=== PATIENT | male | born 1990 | race Caucasian/White ===

== ENCOUNTER 2020-03-11 16:58 | Inpatient (IN) | payer SELFPAY ==
[2020-03-11 17:06] VITALS: BP 126/87; PULSE 97; RESP 18; TEMP 36.4; O2SAT 98; BMI 23.8
--- NOTE | 2020-03-11 17:13 | PC.NURSE ---
addressed sitter situation with charge, she states has no one available after calling [facility]. pt has already expressed wish to leave if having to dress fully out of his clothes. pt is flight risk and charge nurse is aware
--- NOTE | 2020-03-11 17:25 | W.ED.PSYCH ---
HPI - Psych General: Chief Complaint: Psychiatric Symptoms Stated Complaint: Suicidal thoughts Time Seen by Provider: 03/11/20 17:14 History of Present Illness: HPI Narrative: Patient is a 29-year-old male comes to the ED with SI. Patient says for the last couple days he has had increased thoughts of suicide. He denies any plan or attempt but says he thinks about overdosing. Admits to methamphetamine abuse and most recent use was last night. He states he has not been sleeping as well and some of stressful life gets to him, which causes increased thoughts of suicide. Patient also says he like to get clean from drugs as well. Denies any auditory or visual hallucinations or homicidal ideation. Patient does say he has some heartburn while here in the ED and says he frequently gets this. Associated symptoms: Reports suicidal ideation; Deny auditory hallucinations, visual hallucinations or homicidal ideation Review of Systems Const: Denies: fever(s), chills or fatigue Eyes: Denies: change in vision or eye discomfort ENMT: Denies: throat pain, odynophagia, nasal discharge or nasal congestion Card: Denies: chest pain, palpitations, edema, swelling of feet/ankles, dyspnea on exertion or orthopnea Resp: Denies: dyspnea, productive cough or non-productive cough GI: Denies: abdominal pain, nausea, vomiting, diarrhea, constipation or hematochezia : Denies: flank pain, difficulty urinating, dysuria or hematuria Musc: Denies: neck pain, back pain or extremity swelling Skin/Breast: Denies: rash or new lesions Neuro: Denies: headache(s), numbness in extremities or weakness in extremities Psych: Reports: sleeping less and suicidal ideation; Denies: visual hallucinations, auditory hallucinations or homicidal ideation Physical Exam Const: COMMON NORMALS: no acute distress, patient oriented x3 and alert GENERAL APPEARANCE: cooperative and comfortable HENMT: COMMON NORMALS: normocephalic HEAD & SCALP: normocephalic MOUTH: Normal oral and palatal mucosa present THROAT: posterior oropharynx normal and uvula midline Eye: COMMON NORMALS: Equal, round and reactive pupils present PUPIL: Yes Equal, round and reactive pupils present Neck/C-Spine: COMMON NORMALS: supple GENERAL: Yes normal visual inspection Resp: COMMON NORMALS: normal respiratory effort, No retractions, No use of accessory muscles and clear to auscultation bilaterally AUSCULTATION: clear to auscultation bilaterally Cardio: COMMON NORMALS: regular rate, regular rhythm, S1 normal heart sound present, S2 normal heart sound present, No gallops present (Cardio), No clicks present (Cardio), No murmurs present (Cardio) and Peripheral pulses 2+ throughout RATE: regular rate RHYTHM: regular rhythm HEART SOUNDS: S1 normal heart sound present and S2 normal heart sound present PERIPHERAL PULSES: Peripheral pulses 2+ throughout GI: COMMON NORMALS: Normal to inspection, nondistended, normoactive bowel sounds present, Soft to palpation, non-tender and no masses PALPATION: Yes Soft to palpation : COMMON NORMALS: Yes no CVA tenderness BLADDER/KIDNEY EXAM: Yes no CVA tenderness Back/Pelvis: COMMON NORMALS: no CVA tenderness Extremity: COMMON NORMALS: normal to inspection Neuro: COMMON NORMALS: patient oriented x3 and moves all extremities SENSORIUM/ORIENTATION: Yes alert Psych: COMMON NORMALS: Normal thought process present and speech normal APPEARANCE: Yes grossly normal ATTITUDE: Yes calm and Yes engaged ACTIVITY/MOTOR BEHAVIOR: Yes appropriate eye contact and Yes fidgeting SPEECH: Yes normal speech THOUGHT PROCESS: Normal thought process present THOUGHT CONTENT: Yes Suicidality present, No Homicidality present and No Hallucination(s) present ATTENTION/CONCENTRATION: Yes attention grossly intact and Yes concentration grossly intact MEMORY/COGNITION: Yes memory grossly intact and Yes cognition grossly intact INSIGHT: Fair insight present (Psych) JUDGEMENT: Fair judgement present (Psych) Skin: GENERAL SKIN EXAM: dry skin MDM - Psych MDM Narrative: Medical decision making narrative: Patient is a 29-year-old male comes to the ED with SI. He also admits to methamphetamine use in the last time he used was last night. Patient says he wants to get help and would like to be admitted to NPU. I contacted Dr. Griffin and told him about patient case and he accepted admission of patient into the NPU. Dr. Naik placed the admitting orders. Lab Data: Attestation: I reviewed the patient's lab results. Labs: Lab Results 03/11/20 03/11/20 03/11/20 Range/Units 17:40 17:40 17:53 WBC 5.3 (4.0-10.0) 10^3/ uL RBC 4.80 (4.1-5.3) 10^6/u L Hgb 14.3 (11.7-16.6) g/dL Hct 42.9 (42.0-52.0) % MCV 89.4 (80-94) fL MCH 29.8 (28.0-34.0) pg MCHC 33.3 (30.0-36.0) g/dL RDW 12.7 (12.1-15.1) % Plt Count 353 (130-400) 10^3/c mm MPV 9.0 (7.4-10.4) fL Neut % (Auto) 41.0 % Lymph % (Auto) 34.0 % [place] % (Auto) 21.0 % Eos % (Auto) 2.8 % Baso % (Auto) 0.8 % Neut # (Auto) 2.17 (1.8-7.7) 10^3/u L Lymph # (Auto) 1.8 (0.8-4.8) 10^3/u L [place] # (Auto) 1.1 H (0.2-0.9) 10^3/u L Eos # (Auto) 0.2 (0.0-0.8) 10^3/u L Baso # (Auto) 0.0 (0.0-0.1) 10^3/u L Nucleated RBC % (a uto) 0 % Nucleated RBCs # 0.0 /100WBC Sodium (136-145) mmol/L Potassium (3.5-5.1) mmol/L Chloride (98-107) mmol/L Carbon Dioxide (22-29) mmol/L Anion Gap (5-19) BUN (6-20) mg/dL Creatinine (0.7-1.2) mg/dL GFR Calculation (90-130) mL/min Glucose (65-115) mg/dL Calculated Osmolal ity (285-295) mOsm/k g Calcium (8.5-10.5) mg/dL Total Bilirubin (0.15-1.2) mg/dL AST (0-40) U/L ALT (0-41) U/L Alkaline Phosphata se (40-130) IU/L Total Protein (6.6-8.7) g/dL Albumin (3.5-5.2) g/dL Globulin (1.3-4.6) g/dL Urine Color Yellow (Yellow) Urine Appearance Clear (CLEAR) Urine pH 6.0 (5-7) Ur Specific Gravit y 1.015 (1.005-1.030) Urine Protein Neg (Negative) Urine Glucose (UA) Norm (Normal) Urine Ketones Negative (Negative) Urine Blood Neg (Negative) Urine Nitrate Negative (Negative) Urine Bilirubin Neg (Negative) Urine Urobilinogen Norm (Negative) mg/dL Ur Leukocyte Arlin ase Negative (Negative) Urine RBC None (0-2) /hpf Urine WBC None (0-5) /hpf Ur Squamous Epith Cells 0-4 H (0-5) /hpf Amorphous Sediment Not Reportable Urine Bacteria Trace (NONE) /hpf Urine Sperm 1+ /hpf Salicylates (3-10) mg/dL Urine Opiates Scre en Negative (Negative) ng/mL Acetaminophen (10-30) ug/mL Ur Barbiturates Sc reen Negative (Negative) ng/mL Ur Phencyclidine S crn Negative (Negative) ng/mL Ur Amphetamines Sc reen Positive H (Negative) ng/mL U Benzodiazepines Scrn Negative (Negative) ng/mL Urine Cocaine Scre en Negative (Negative) ng/mL U Marijuana (THC) Screen Positive H (Negative) ng/mL Ethyl Alcohol (0-10) mg/dL 03/11/20 Range/Units 17:53 WBC (4.0-10.0) 10^3/ uL RBC (4.1-5.3) 10^6/u L Hgb (11.7-16.6) g/dL Hct (42.0-52.0) % MCV (80-94) fL MCH (28.0-34.0) pg MCHC (30.0-36.0) g/dL RDW (12.1-15.1) % Plt Count (130-400) 10^3/c mm MPV (7.4-10.4) fL Neut % (Auto) % Lymph % (Auto) % [place] % (Auto) % Eos % (Auto) % Baso % (Auto) % Neut # (Auto) (1.8-7.7) 10^3/u L Lymph # (Auto) (0.8-4.8) 10^3/u L [place] # (Auto) (0.2-0.9) 10^3/u L Eos # (Auto) (0.0-0.8) 10^3/u L Baso # (Auto) (0.0-0.1) 10^3/u L Nucleated RBC % (a uto) % Nucleated RBCs # /100WBC Sodium 139 (136-145) mmol/L Potassium 4.0 (3.5-5.1) mmol/L Chloride 100 (98-107) mmol/L Carbon Dioxide 33 H (22-29) mmol/L Anion Gap 10.0 (5-19) BUN 22 H (6-20) mg/dL Creatinine 0.9 (0.7-1.2) mg/dL GFR Calculation 101.2 (90-130) mL/min Glucose 87 (65-115) mg/dL Calculated Osmolal ity 291 (285-295) mOsm/k g Calcium 8.9 (8.5-10.5) mg/dL Total Bilirubin 0.4 (0.15-1.2) mg/dL AST 24 (0-40) U/L ALT 54 H (0-41) U/L Alkaline Phosphata se 120 (40-130) IU/L Total Protein 6.9 (6.6-8.7) g/dL Albumin 3.7 (3.5-5.2) g/dL Globulin 3.2 (1.3-4.6) g/dL Urine Color (Yellow) Urine Appearance (CLEAR) Urine pH (5-7) Ur Specific Gravit y (1.005-1.030) Urine Protein (Negative) Urine Glucose (UA) (Normal) Urine Ketones (Negative) Urine Blood (Negative) Urine Nitrate (Negative) Urine Bilirubin (Negative) Urine Urobilinogen (Negative) mg/dL Ur Leukocyte Arlin ase (Negative) Urine RBC (0-2) /hpf Urine WBC (0-5) /hpf Ur Squamous Epith Cells (0-5) /hpf Amorphous Sediment Urine Bacteria (NONE) /hpf Urine Sperm /hpf Salicylates < 0.3 L (3-10) mg/dL Urine Opiates Scre en (Negative) ng/mL Acetaminophen < 5.0 L (10-30) ug/mL Ur Barbiturates Sc reen (Negative) ng/mL Ur Phencyclidine S crn (Negative) ng/mL Ur Amphetamines Sc reen (Negative) ng/mL U Benzodiazepines Scrn (Negative) ng/mL Urine Cocaine Scre en (Negative) ng/mL U Marijuana (THC) Screen (Negative) ng/mL Ethyl Alcohol < 10 (0-10) mg/dL EKG Data^: EKG 1: Attestation: I personally reviewed and interpreted this EKG as follows: EKG interpretation date: 03/11/20 Interpretation: Normal sinus rhythm, 76 bpm, no ST segment elevation or depression seen. Discharge Plan Discharge Patient Disposition: Admitted As Inpatient Admit Provider: Santi Griffin Clinical Impression: Suicidal ideation Condition: Stable Coding Level of Care Code ED Business Integration Manager for Chg Fwd Exam Comprehensive
[2020-03-11 17:30] VITALS: BP 135/82; PULSE 93; RESP 16; O2SAT 100
[2020-03-11 17:58] LABS: Basophils % 0.8 %; Eosinophils # 0.2 10^3/uL (0.0-0.8); Eosinophils % 2.8 %; Hematocrit 42.9 % (42.0-52.0); Hemoglobin 14.3 g/dL (11.7-16.6); Lymphocytes # 1.8 10^3/uL (0.8-4.8); Mean Corpuscular HGB Conc 33.3 g/dL (30.0-36.0); Mean Corpuscular Hemoglobin 29.8 pg (28.0-34.0); Mean Corpuscular Volume 89.4 fL (80-94); Monocytes # 1.1 10^3/uL (0.2-0.9); Neutrophils # 2.17 10^3/uL (1.8-7.7); Nucleated Red Blood Cells % 0 %; Platelet Count 353 10^3/cmm (130-400); Red Cell Distribution Width 12.7 % (12.1-15.1); White Blood Count 5.3 10^3/uL (4.0-10.0)
--- NOTE | 2020-03-11 18:01 | ECG_ITS ---
[facility] Test Date: 2020-03-11 Pat Name: John Love Department: Room: Gender: Male Finance Insurance Manager: : 1990 Requested By: Syed Carlton Order Number: [id number] Connors MD: Roya Hess M.D. Measurements Intervals [place] Rate: 76 P: 51 DE: 150 QRS: 79 QRSD: 104 T: 61 QT: 359 QTc: 404 Interpretive Statements SINUS RHYTHM Compared to ECG 03/05/2014 19:37:24 No significant changes Electronically Signed On 03-11-2020 23:54:35 ENVIRONMENTAL ECONOMIST by Roya Hess M.D. [id number]
[2020-03-11 18:14] LABS: Alanine Aminotransferase 54 U/L (0-41); Albumin Level 3.7 g/dL (3.5-5.2); Alkaline Phosphatase 120 IU/L (40-130); Aspartate Amino Transferase 24 U/L (0-40); Blood Urea Nitrogen 22 mg/dL (6-20); Calcium 8.9 mg/dL (8.5-10.5); Carbon Dioxide 33 mmol/L (22-29); Chloride 100 mmol/L (98-107); Globulin 3.2 g/dL (1.3-4.6); Glomerular Filtration Rate 101.2 mL/min (90-130); Glucose 87 mg/dL (65-115); Osmolality Calculated 291 mOsm/kg (285-295); Sodium 139 mmol/L (136-145); Total Bilirubin 0.4 mg/dL (0.15-1.2); Total Protein 6.9 g/dL (6.6-8.7)
[2020-03-11 18:15] LABS: Acetaminophen < 5.0 ug/mL (10-30); Alcohol Level < 10 mg/dL (0-10); Salicylate < 0.3 mg/dL (3-10)
[2020-03-11] MEDS: lidocaine 2% viscous 15 ML, aluminum-mag hydrox-simethicon 30 ML, sucralfate oral liq 1 GM PO (18:17)
[2020-03-11 18:19] LABS: Add Urine Culture? No; Bacteria Urine TRACE /hpf; Bilirubin Urine Neg (Negative); Blood Urine Neg (Negative); Glucose Urine UA Norm (Normal); Ketones Urine Negative (Negative); Leukocyte Esterase Urine Negative (Negative); Nitrate Urine Negative (Negative); Protein Urine Neg (Negative); Specific Gravity, Urine 1.015 (1.005-1.030); Sperm Urine 1+ /hpf; Squamous Epithelial Cell Urine 0-4 /hpf (0-5); Urine Appearance Clear (CLEAR); Urine Color Yellow (Yellow); Urobilinogen Urine Norm (Negative)
[2020-03-11 18:20] LABS: Amphetamines Screen Urine Positive (Negative); Barbiturates Screen Urine Negative (Negative); Benzodiazepines Screen Urine Negative (Negative); Cocaine Screen Urine Negative (Negative); Opiate Screen Urine Negative (Negative); PCP Screen Urine Negative (Negative); THC Screen Urine Positive (Negative)
--- NOTE | 2020-03-11 18:37 | PC.NURSE ---
Patient belongings collected and placed in clear plastic bag and placed beside metal belongings file cabinet due to not being able to fit inside. Patient also had a black plastic trash bag with some belongings in that was collected and placed with the clear plastic bag.
[2020-03-11 22:00] VITALS: BP 138/84; PULSE 76; RESP 18; TEMP 36.9; O2SAT 96
--- NOTE | 2020-03-12 05:12 | PC.NURSE ---
Skin assessment revealed no wounds or injuries. The patient said he has jock itch and requested treatment for the condition.
[2020-03-12 06:00] VITALS: BP 112/70; PULSE 87; RESP 17; TEMP 37.9; O2SAT 94
[2020-03-12 14:00] VITALS: BP 116/71; PULSE 96; RESP 20; TEMP 37.2; O2SAT 97
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
[2020-03-12 22:00] VITALS: BP 101/66; PULSE 101; RESP 18; TEMP 36.6; O2SAT 97
[2020-03-12] MEDS: clotrimazole 1% cream 30 gm 1 APPLIC TOPICAL (23:11)
--- NOTE | 2020-03-13 01:40 | PC.NURSE ---
PM assessment Pt denies pain, denies AH/VH/SI/HI at this time. Pt has stayed in bed most of the shift. Lung sounds and heart sounds are normal. V/s are as follows: Temp 97.9, CA 101 at rest, RR 18, O2 98% on RA, and BP 101/66. He is mildly diaphoretic, A&O x4. He is calm and cooperative with staff. Pt did come out of room long enough for a snack but returned after. He is resting calmly at this time. Will continue to monitor for any s/s of distress.
--- NOTE | 2020-03-13 04:19 | PC.NURSE ---
Restless Pt is sleeping but he is restless, tossing, turning. Will continue to monitor.
[2020-03-13 05:58] VITALS: BP 100/72; PULSE 76; RESP 18; TEMP 37; O2SAT 97
[2020-03-13] MEDS: propranolol 20 mg Tablet PO (06:07)
[2020-03-13] MEDS: fluoxetine 20 mg Capsule PO (09:43)
[2020-03-13] MEDS: clotrimazole 1% cream 30 gm 1 APPLIC TOPICAL ×2 (09:43→20:59)
[2020-03-13] MEDS: nicotine 21 mg Patch 1 PATCH TRANSDERMA (11:47)
[2020-03-13 13:26] VITALS: BP 99/62; PULSE 79; RESP 18; TEMP 37.4; O2SAT 96
--- NOTE | 2020-03-13 17:09 | PM.NPN ---
Subjective NPU Subjective: Interval history: John presents today reporting he still feels really crappy. He had agreed to start the Prozac and propranolol this morning but denies having any sense of whether it is helping or not. He reports that he is open to being connected with sober living treatment and is working with the social work team to find opportunities for him to have residential treatment for his addiction. Overall reports still feeling crappy but endorses a resolved to get things changed in his life. Mental Status Exam MSE Comments: This is a well-nourished, well-developed white male in hospital scrubs with limited grooming and adequate eye contact. No abnormal movements except psychomotor retardation. Cooperative with exam in mild distress. Speech was decreased rate and volume. Mood described as depressed, affect congruent. Thought process organized. Thought content: Patient endorsed suicidal but denied homicidal ideation, there were no delusions reported or noted, he had migratory hallucinations. Attention and concentration were intact and memory appeared reliable but none were formally tested. He is alert and oriented x3. Insight and judgment appear fair and impulse control was limited/impaired. Vitals/I&O/Wt Last Vital Signs Temp 99.7 F H 03/13/20 20:12 Pulse 72 03/13/20 20:12 Resp 15 03/13/20 20:12 BP 100/58 03/13/20 20:12 Pulse Ox 92 03/13/20 20:12 Data NPU : 03/11/20 17:53 03/11/20 17:53 A&P Additional A&P Information (1) Suicidal ideation: (2) Depression: (3) Anxiety: (4) Methamphetamine abuse: (5) Withdrawal from methamphetamine: This is a 29-year-old white male with a long history of addiction who presents with active addiction, depression and anxiety who presents reporting the lengthening some changes and start on a path to recovery. 1. Continue current medication. He started Prozac 20 mg p.o. every morning and propranolol 20 mg p.o. 3 times daily as needed. 2. Continue every 15 minute checks for safety. 3. Encourage individual, group therapy. 4. Encourage sober living treatment after discharge at the highest level of care to which he is willing to commit. Involuntary Hold Information 96 Hour Hold: 96 Hour Involuntary Admission: No Attestations NPU Medical Necessity Statement*: Inpatient hospitalization is medically necessary and the clinically appropriate intervention at this time. We will monitor medications and make changes as indicated. Likely length of stay 3 to 5 days. Coding Level of Care Code Acute Business Office Technology Instructor for Rico Lora
[2020-03-13 20:12] VITALS: BP 100/58; PULSE 72; RESP 15; TEMP 37.6; O2SAT 92
[2020-03-14 06:00] VITALS: BP 101/69; PULSE 72; RESP 16; TEMP 36.7; O2SAT 92
[2020-03-14] MEDS: clotrimazole 1% cream 30 gm 1 APPLIC TOPICAL ×2 (08:56→21:01)
[2020-03-14] MEDS: fluoxetine 20 mg Capsule PO (08:56)
[2020-03-14 13:45] VITALS: BP 112/69; PULSE 75; RESP 18; TEMP 37.3; O2SAT 96
--- NOTE | 2020-03-14 15:43 | P.PN_ITS ---
Subjective NPU Subjective: Interval history: John presents today reporting that he is starting to feel a little better. He is feeling really optimistic now that he is been accepted to the [facility]. He reports that he is doing okay with the medication and denies any side effects from it. He reports that he is eating better and sleeping better. He endorses a willingness to follow through with the [facility] program when they have the opening available. Mental Status Exam MSE Comments: This is a well-nourished, well-developed white male in hospital scrubs with limited grooming and adequate eye contact. No abnormal movements except mild psychomotor retardation. Cooperative with exam in no acute distress. Speech was more normal rate and volume. Mood described as a little better, affect congruent. Thought process organized. Thought content: Patient endorsed suicidal but denied homicidal ideation, there were no delusions reported or noted, he had migratory hallucinations. Attention and concentration were intact and memory appeared reliable but none were formally tested. He is alert and oriented x3. Insight and judgment appear fair and impulse control was limited/impaired. Vitals/I&O/Wt Last Vital Signs Temp 98.3 F 03/14/20 21:02 Pulse 70 03/14/20 21:02 Resp 18 03/14/20 21:02 BP 109/76 03/14/20 21:02 Pulse Ox 98 03/14/20 21:02 Data NPU : 03/11/20 17:53 03/11/20 17:53 A&P Additional A&P Information (1) Suicidal ideation: (2) Depression: (3) Anxiety: (4) Methamphetamine abuse: (5) Withdrawal from methamphetamine: This is a 29-year-old white male with a long history of addiction who presents with active addiction, depression and anxiety who presents reporting the lengthening some changes and start on a path to recovery. 1. Continue current medication. 2. Continue every 15 minute checks for safety. 3. Encourage individual, group therapy. 4. Encourage sober living treatment after discharge at the highest level of care to which he is willing to commit. Involuntary Hold Information 96 Hour Hold: 96 Hour Involuntary Admission: No Attestations NPU Medical Necessity Statement*: Inpatient hospitalization is medically necessary and the clinically appropriate intervention at this time. We will monitor me dications and make changes as indicated. Likely length of stay 2-4 days. Coding Level of Care Code Acute Language Translator for Rico Lora
[2020-03-14 21:02] VITALS: BP 109/76; PULSE 70; RESP 18; TEMP 36.8; O2SAT 98
[2020-03-15 06:00] VITALS: BP 111/65; PULSE 88; RESP 18; TEMP 36.6; O2SAT 98
--- NOTE | 2020-03-15 06:25 | PC.NURSE ---
refuses Prozac Pt does not like the feeling of being drunk all day long and he does not want to take it any more. Pt would like to try something that does not make him feel that way.,
[2020-03-15 14:00] VITALS: BP 125/82; PULSE 90; RESP 20; TEMP 36.2; O2SAT 96
[2020-03-15] MEDS: hyDROXYzine 25 mg Capsule 50 MG PO (14:24)
[2020-03-15] MEDS: nicotine 2 mg Gum BUCCAL (14:34)
--- NOTE | 2020-03-15 18:01 | P.PN_ITS ---
Subjective NPU Subjective: Interval history: John presents today reporting that he is doing a little better overall. He reports that he is tolerating the medication without difficulty. Not sure how things will return out but he is continuing to be committed to the idea of going to the [facility] program and finally getting his addiction under control. He reports that he is eating and sleeping better and denies any significant cravings at this moment. Mental Status Exam MSE Comments: This is a well-nourished, well-developed white male in hospital scrubs with limited grooming and adequate eye contact. No abnormal movements except mild psychomotor retardation. Cooperative with exam in no acute dis tress. Speech was more normal rate and volume. Mood described as better, affect congruent. Thought process organized. Thought content: Patient denied suicidal or homicidal ideation, there were no delusions reported or noted, he denied auditory or visual hallucinations. Attention and concentration were intact and memory appeared reliable but none were formally tested. He is alert and oriented x3. Insight and judgment appear fair and impulse control was limited. Vitals/I&O/Wt Last Vital Signs Temp 97.2 F L 03/15/20 14:00 Pulse 90 03/15/20 14:00 Resp 20 H 03/15/20 14:00 BP 125/82 03/15/20 14:00 Pulse Ox 96 03/15/20 14:00 Weight last 48 hrs Weight Data NPU : 03/11/20 17:53 03/11/20 17:53 A&P Additional A&P Information (1) Suicidal ideation: (2) Depression: (3) Anxiety: (4) Methamphetamine abuse: (5) Withdrawal from methamphetamine: This is a 29-year-old white male with a long history of addiction who presents with active addiction, depression and anxiety who presents reporting the lengthening some changes and start on a path to recovery. 1. Continue current medication. 2. Continue every 15 minute checks for safety. 3. Encourage individual, group therapy. 4. Encourage sober living treatment after discharge at the highest level of care to which he is willing to commit. Involuntary Hold Information 96 Hour Hold: 96 Hour Involuntary Admission: No Attestations NPU Medical Necessity Statement*: Inpatient hospitalization is medically necessary and the clinically appropriate intervention at this time. We will monitor medications and make changes as indicated. Likely length of stay 2-4 days. Coding Level of Care Code Acute Bleacher Sulfite Pulp for Rico Lora
[2020-03-15 20:29] VITALS: BP 112/55; PULSE 94; RESP 17; TEMP 37.7; O2SAT 90
[2020-03-16 05:59] VITALS: BMI 23.8
[2020-03-16 06:00] VITALS: BP 100/64; PULSE 78; RESP 19; TEMP 37.1; O2SAT 97
[2020-03-16] MEDS: fluoxetine 20 mg Capsule PO (08:35)
--- NOTE | 2020-03-16 10:07 | P.PN_ITS ---
Subjective NPU Subjective: Interval history: John presents today reporting that things are going better. He endorses that his sister lives nearby and that she plan to take him to [place] tomorrow. He endorses commit to go to the [facility] program and getting best treatment he can in focusing on his recovery. He denies any problems the medication and reports that he is eating and sleeping better. Mental Status Exam MSE Comments: This is a well-nourished, well-developed white male in hospital scrubs with limited grooming and adequate eye contact. No abnormal movements except mild psychomotor retardation. Cooperative with exam in no acute distress. Speech was more normal rate and volume. Mood described as pretty good, affect congruent. Thought process organized. Thought content: Patient denied suicidal or homicidal ideation, there were no delusions reported or noted, he denied auditory or visual hallucinations. Attention and concentration were intact and memory appeared reliable but none were formally tested. He is alert and oriented x3. Insight and judgment appear fair and impulse control was limited. Vitals/I&O/Wt Last Vital Signs Temp 98.7 F 03/16/20 06:00 Pulse 78 03/16/20 06:00 Resp 19 H 03/16/20 06:00 BP 100/64 03/16/20 06:00 Pulse Ox 97 03/16/20 06:00 Weight last 48 hrs Weight 82.1 kg Data NPU : 03/11/20 17:53 03/11/20 17:53 A&P Additional A&P Information (1) Suicidal ideation: (2) Depression: (3) Anxiety: (4) Methamphetamine abuse: (5) Withdrawal from methamphetamine: This is a 29-year-old white male with a long history of addiction who presents with active addiction, depression and anxiety who presents reporting the lengthening some changes and start on a path to recovery. 1. Continue current medication. 2. Continue every 15 minute checks for safety. 3. Encourage individual, group therapy. 4. Encourage sober living treatment after discharge at the highest level of care to which he is willing to commit. Involuntary Hold Information 96 Hour Hold: 96 Hour Involuntary Admission: No Attestations NPU Medical Necessity Statement*: Inpatient hospitalization is medically necessary and the clinically appropriate intervention at this time. We will monitor medications and make changes as indicated. Likely length of stay 1-3 days. Coding Level of Care Code Acute Short Filler Bunch Machine Operator for Rico Lora
[2020-03-16 14:00] VITALS: BP 114/71; PULSE 85; RESP 18; TEMP 36.8
--- NOTE | 2020-03-16 20:27 | PC.NURSE ---
RESTING IN BED, APPEARS SAD, SAYS NO ENERGY, DENIES WANTING TO HARM SELF OR OTHERS.
[2020-03-16] MEDS: clotrimazole 1% cream 30 gm 1 APPLIC TOPICAL (21:20)
[2020-03-16 21:29] VITALS: BP 116/63; PULSE 77; RESP 18; TEMP 36.8; O2SAT 94
[2020-03-17 06:00] VITALS: BP 107/69; PULSE 71; RESP 18; TEMP 37; O2SAT 95
[2020-03-17] MEDS: fluoxetine 20 mg Capsule PO (08:34)
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
[2020-03-17 11:00] VITALS: BP 107/69; PULSE 71; RESP 18; TEMP 37; O2SAT 95
== END 2020-03-17 13:19 | disposition home or self-care (01) | DRG 897 ==
LOC: ER 17:14 → NP 19:43
PROVIDERS: Admitting Provider Psychiatry & Neurology Psychiatry; Emergency Provider Physician Assistant; Visit Provider Psychiatry & Neurology Psychiatry
DX: F15.13 Other stimulant abuse with withdrawal (principal); R45.851 Suicidal ideations; F15.10 Other stimulant abuse, uncomplicated; F32.9 Major depressive disorder, single episode, unspecified; F41.9 Anxiety disorder, unspecified; Z59.0 Homelessness; Z81.8 Family history of other mental and behavioral disorders
CPT/HCPCS: 12345; 80053; 80306; 80307; 81001; 85025; 93005; 99284

== ENCOUNTER → 2020-08-28 16:43 | Outpatient (BNVA) | payer OTHER, SELFPAY | PROVIDERS: Visit Provider Nurse Practitioner | DX: Z20.822 Contact with and (suspected) exposure to COVID-19 (principal) | CPT/HCPCS: 87635 ==

== ENCOUNTER 2024-09-05 21:19 | Emergency (ER) | payer MEDICAID, SELFPAY ==
[2024-09-05 21:31] VITALS: BP 141/87; PULSE 70; RESP 18; TEMP 36.6; O2SAT 98; BMI 27.0
--- NOTE | 2024-09-05 22:43 | CTR_ITS ---
PROCEDURE INFORMATION: Exam: CT Neck With Contrast Exam date and time: 09/05/2024 11:21 PM Age: 34 years old Clinical indication: Mass, lump, or swelling in neck; Right; Bb on area of interest; Additional info: Painful mass behind right ear/angle of mandible, need to fully visualize angle of mandible. If CT neck/facial TECHNIQUE: Imaging protocol: Computed tomography of the neck with contrast. Radiation optimization: All CT scans at this facility use at least one of these dose optimization techniques: automated exposure control; mA and/or kV adjustment per patient size (includes targeted exams where dose is matched to clinical indication); or iterative reconstruction. Contrast material: OMNI 350; Contrast volume: 80 ml; Contrast route: INTRAVENOUS (IV); COMPARISON: No relevant prior studies available. RADIATION DOSE METRICS: Total DLP (mGy-cm): 282.3 FINDINGS: Paranasal sinuses: Mild mucosal thickening is noted in the maxillary sinuses. Salivary glands: There is a 2.2 x 1.8 x 1.5 cm solid mass along the posterior aspect of the right parotid gland. If this is arising within the gland rather than adjacent to the gland this may represent a pathologic intraparotid lymph node or parotid neoplasm. Further evaluation is recommended. The left parotid gland and both submandibular glands appear within normal limits. Pharynx: Unremarkable. No significant tonsillar enlargement. Larynx: Unremarkable. Epiglottis is normal. Thyroid: Normal. No enlarged or calcified nodules. Trachea: Visualized trachea is unremarkable. Lungs: A calcified granuloma is present in the right upper lobe. Lymph nodes: Calcified mediastinal and right hilar lymph nodes are present, likely due to old granulomatous disease. Bones/joints: Unremarkable. No acute fracture. Soft tissues: Unremarkable. No significant soft tissue swelling. CT/CT neck w con* [id number] IMPRESSION: There is a 2.2 x 1.8 x 1.5 cm solid mass along the posterior aspect of the right parotid gland. If this is arising within the gland rather than adjacent to the gland this may represent a pathologic intraparotid lymph node or parotid neoplasm. Further evaluation is recommended.
[2024-09-05 23:20] LABS: Basophils # 0.1 10^3/uL (0.0-0.1); Basophils % 0.5 %; Eosinophils # 0.3 10^3/uL (0.0-0.8); Hematocrit 45.2 % (37-53); Lymphocytes # 3.6 10^3/uL (0.8-4.8); Lymphocytes % 37.5 %; Mean Corpuscular HGB Conc 34.3 g/dL (30-55); Mean Corpuscular Hemoglobin 30.6 pg (27-33); Mean Corpuscular Volume 89.3 fl (82-101); Mean Platelet Volume 8.5 fL (7.4-10.4); Monocytes # 0.9 10^3/uL (0.2-0.9); Monocytes % 9.4 %; Neutrophils # 4.65 10^3/uL (1.8-7.7); Nucleated Red Blood Cells % 0 %; Platelet Count 323 10^3/cmm (157-399); Red Blood Count 5.06 10^6/uL (3.85-5.65); Red Cell Distribution Width 13.2 % (12.1-15.1); White Blood Count 9.51 10^3/uL (3.29-11.43)
[2024-09-05] MEDS: iohexol 350 mg/mL 500 mL Btl (per mL) IV (23:28)
[2024-09-05 23:29] LABS: Erythrocyte Sedimentation Rate 2 mm/hr (0-10)
[2024-09-05 23:38] VITALS: RESP 20
[2024-09-05 23:38] LABS: Alanine Aminotransferase 22 U/L (0-41); Albumin Level 4.4 g/dL (3.5-5.2); Alkaline Phosphatase 95 U/L (40-130); Anion Gap 13.8 (5-19); Aspartate Amino Transferase 21 U/L (0-40); Blood Urea Nitrogen 15 mg/dL (6-20); C Reactive Protein 3.4 mg/L (0.0-4.9); Calcium 9.4 mg/dL (8.5-10.5); Carbon Dioxide 31 mmol/L (22-29); Chloride 101 mmol/L (98-107); Creatinine Clr Calc Pharmacy 133.9647; Glomerular Filtration Rate 97.8 mL/min (90-130); Glucose 84 mg/dL (65-115); Osmolality Calculated 294 mOsm/kg (285-295); Potassium 3.8 mmol/L (3.5-5.1); Sodium 142 mmol/L (136-145); Total Bilirubin 0.4 mg/dL (0.15-1.2); Total Protein 7.4 g/dL (6.6-8.7)
[2024-09-05] MEDS: morphine 4 mg/mL SDV 1 mL IVP (23:38)
[2024-09-05 23:41] VITALS: BP 159/110; PULSE 67; O2SAT 100
[2024-09-06 00:46] VITALS: RESP 18
[2024-09-06] MEDS: oxyCODONE-APAP 10-325 mg Tablet 1 TAB PO (00:46)
[2024-09-06 01:09] VITALS: BP 139/107; PULSE 58; O2SAT 99
--- NOTE | 2024-09-06 03:04 | ED_ITS ---
HPI - Neck Pain/Injury 2 General: Chief Complaint: Neck Pain/Injury Stated Complaint: knot behind left ear severe pain Time Seen by Provider: 09/05/24 22:34 History of Present Illness: Patient presents with a painful lump behind the right ear, described as a knot that has been present for approximately two months. The pain became severe and constant starting around 5 o'clock today, and is associated with headache. The lump is about one centimeter in size, firm, and located behind the angle of the mandible. Patient reports the pain may be pressing on a nerve. No similar lump on the other side. Denies fever, dental pain, or recent dental issues. Hearing is reportedly unaffected. Patient recently completed a course of antibiotics for planned dental extractions, but states teeth have not caused pain before or after antibiotics. No other associated symptoms reported. Related Data Previous Rx's ?Medication ?Instructions ?Recorded fluoxetine 20 mg capsule 20 mg PO DAILY 30 days #30 c aps 03/17/20 propranolol 20 mg tablet 20 mg PO TID PRN Anxiety 30 days 03/17/20 #90 tabs oxycodone 10 mg tablet 10 mg PO Q8H PRN pain #30 ta bs 09/06/24 Allergies Allergy/AdvReac Type Severity Reaction Status Date / Time No Known Allergies Allergy Verified 09/05/24 21:38 Physical Exam 2 Const: COMMON NORMALS: no acute distress, patient oriented x3 and alert HENMT: OTHER: Patient has a tender, firm, nonmobile oval-shaped mass just posterior and inferior to the ear and angle of the mandible at the posterior aspect of the parotid gland. There are no surrounding positive lymph nodes. Ear exam is normal. Hearing is normal. Eye: COMMON NORMALS: Equal, round and reactive pupils present, EOMs intact bilaterally and no scleral icterus PUPIL: Yes Equal, round and reactive pupils present Resp: COMMON NORMALS: normal respiratory effort and No retractions Cardio: COMMON NORMALS: regular rate, regular rhythm and No murmurs present (Cardio) RATE: regular rate RHYTHM: regular rhythm GI: COMMON NORMALS: Normal to inspection, nondistended, normoactive bowel sounds present, Soft to palpation and non-tender PALPATION: Yes Soft to palpation Neuro: COMMON NORMALS: patient oriented x3 SENSORIUM/ORIENTATION: Yes alert Skin: COMMON NORMALS: no rashes or lesions noted GENERAL SKIN EXAM: no rashes or lesions noted Course 2 Vital Signs: Vital signs: Vital Signs Temperature 97.8 F 09/05/24 21:31 Pulse Rate 58 L 09/06/24 01:09 Respiratory Rate 18 09/06/24 00:46 Blood Pressure 139/107 09/06/24 01:09 Pulse Oximetry 99 09/06/24 01:09 Oxygen Delivery Me thod Room Air 09/05/24 23:41 MDM - Neck Pain/Injury Medical Decision Making In summary, patient has a gradually worsening firm, nonmobile, tender mass in the region of the posterior parotid gland on the right. CT scan with contrast shows mass in the region of the parotid gland of uncertain etiology. He will be given a short course of pain medication and case management referral was placed so that he can hopefully be seen expeditiously by interventional radiology to consider fine-needle aspiration and biopsy. He knows that he is always welcome back in the emergency department if symptoms get worse before outpatient follow- up. Lab Data 09/05/24 23:10 09/05/24 23:[address] 09/05/24 22:43 IMPRESSION: There is a 2.2 x 1.8 x 1.5 cm solid mass along the posterior aspect of the right parotid gland. If this is arising within the gland rather than adjacent to the gland this may represent a pathologic intraparotid lymph node or parotid neoplasm. Further evaluation is recommended. Laboratory Results WBC 9.51 10^3/uL (3.29-11.43) 09/05/24 23:10 RBC 5.06 10^6/uL (3.85-5.65) 09/05/24 23:10 Hgb 15.50 g/dL (11.27-16.99) 09/05/24 23:10 Hct 45.2 % (37-53) 09/05/24 23:10 MCV 89.3 fl (82-101) 09/05/24 23:10 MCH 30.6 pg (27-33) 09/05/24 23:10 MCHC 34.3 g/dL (30-55) 09/05/24 23:10 RDW 13.2 % (12.1-15.1) 09/05/24 23:10 Plt Count 323 10^3/cmm (157-399) 09/05/24 23:10 MPV 8.5 fL (7.4-10.4) 09/05/24 23:10 Neut % (Auto) 49.0 % 09/05/24 23:10 Lymph % (Auto) 37.5 % 09/05/24 23:10 [place] % (Auto) 9.4 % 09/05/24 23:10 Eos % (Auto) 3.0 % 09/05/24 23:10 Baso % (Auto) 0.5 % 09/05/24 23:10 Neut # (Auto) 4.65 10^3/uL (1.8-7.7) 09/05/24 23:10 Lymph # (Auto) 3.6 10^3/uL (0.8-4.8) 09/05/24 23:10 [place] # (Auto) 0.9 10^3/uL (0.2-0.9) 09/05/24 23:10 Eos # (Auto) 0.3 10^3/uL (0.0-0.8) 09/05/24 23:10 Baso # (Auto) 0.1 10^3/uL (0.0-0.1) 09/05/24 23:10 Nucleated RBC % (auto) 0 % 09/05/24 23:10 Nucleated RBCs # 0.0 /100WBC 09/05/24 23:10 ESR 2 mm/hr (0-10) 09/05/24 23:10 Sodium 142 mmol/L (136-145) 09/05/24 23:10 Potassium 3.8 mmol/L (3.5-5.1) 09/05/24 23:10 Chloride 101 mmol/L (98-107) 09/05/24 23:10 Carbon Dioxide 31 mmol/L (22-29) H 09/05/24 23:10 Anion Gap 13.8 (5-19) 09/05/24 23:10 BUN 15 mg/dL (6-20) 09/05/24 23:10 Creatinine 0.9 mg/dL (0.7-1.2) 09/05/24 23:10 GFR Calculation 97.8 mL/min (90-130) 09/05/24 23:10 Glucose 84 mg/dL (65-115) 09/05/24 23:10 Calculated Osmolality 294 mOsm/kg (285-295) 09/05/24 23:10 Calcium 9.4 mg/dL (8.5-10.5) 09/05/24 23:10 Total Bilirubin 0.4 mg/dL (0.15-1.2) 09/05/24 23:10 AST 21 U/L (0-40) 09/05/24 23:10 ALT 22 U/L (0-41) 09/05/24 23:10 Alkaline Phosphatase 95 U/L (40-130) 09/05/24 23:10 C-Reactive Protein 3.4 mg/L (0.0-4.9) 09/05/24 23:10 Total Protein 7.4 g/dL (6.6-8.7) 09/05/24 23:10 Albumin 4.4 g/dL (3.5-5.2) 09/05/24 23:10 Globulin 3.0 g/dL (1.3-4.6) 09/05/24 23:10 All radiology interpretation(s) finalized by discharge Discharge Plan Discharge Patient Disposition: Home Clinical Impression: Mass of right parotid gland Condition: Stable Prescriptions: New oxycodone 10 mg tablet 10 mg PO Q8H PRN (Reason: pain) Qty: 30 0RF No Action propranolol 20 mg Tablet 20 mg PO TID PRN (Reason: Anxiety) 30 Days Qty: 90 1RF fluoxetine 20 mg Capsule 20 mg PO DAILY 30 Days Qty: 30 1RF Discharge Orders: Discharge ED (Routine); Ordered 09/06/24 Ordered By: Nahid Pemberton Discharge Diet: Usual diet Discharge Activity: Increase activity as tolerated Patient Instructions: Opioid Safety, Pain Management, Patient Portal & Ivan Instructions Activity Restrictions/Additional Instructions: CT scan showed a mass in your right parotid gland of uncertain etiology. Case management has been consulted to help you get seen by interventional radiology as soon as possible so that they can put a needle in the mass and take a biopsy to further evaluate what the mass is made out of and how best to treat it. If your pain is out of control you are always welcome back in the emergency department to try and expedite the diagnostic process Print Language: Portuguese Coding Level of Care Code ED Automotive Parts Clerk for Rico Lora
--- NOTE | 2024-09-07 08:40 | DCPLANNER ---
faxed referral packet to [facility] ent
== END 2024-09-06 01:21 | disposition home or self-care (01) ==
PROVIDERS: Emergency Provider Student in an Organized Health Care Education/Training Program
DX: K11.8 Other diseases of salivary glands (principal)
CPT/HCPCS: 70491; 80053; 85025; 85651; 86140; 96374; 99285; J2270; J9999